=== PATIENT | male | born 1935 | race Caucasian/White ===

== ENCOUNTER 2016-08-02 08:17 | Emergency (ER) | payer MEDICARE, OTHER ==
--- NOTE | 2016-08-11 17:59 | ER ---
ADMIT: 08/02/2016 RM/LOC: ER [facility] MR#: [id number] [address] [id number] [place] [address] [place] [address] Emergency Room Report SEX: M AGE: 81 : 1935 DATE: 08/02/2016 See T-sheet for complete H and P. ADDENDUM: An 81-year-old male, who presented after he had been stung by couple bees. He does keep bees as a hobby and states that he was stung by at least twice about an hour and a half ago. He denies any shortness of breath or difficulty breathing or swallowing, but does have significant itching all over his body. On examination, he is in no distress. He has no stridor. No wheezes. He is handling his own secretions and airway is patent. He does have diffuse erythema on his body. He was given Decadron IM and Benadryl 50 mg IM, and he was watched for approximately an hour and his symptoms were significantly improved. He is discharged home with instructions to continue to use Benadryl and return to the ER for any difficulty breathing or swallowing. Gucci Guillory MD/ aixa JOB #: [id number] CC: Gucci Guillory MD, Attending Physician UNKNOWN, Family Physician
== END 2016-08-02 09:50 | disposition home or self-care (01) ==
LOC: ER 08:17
DX: T63.441A Toxic effect of venom of bees, accidental (unintentional), initial encounter (principal); R21 Rash and other nonspecific skin eruption; E11.9 Type 2 diabetes mellitus without complications; I10 Essential (primary) hypertension; K21.9 Gastro-esophageal reflux disease without esophagitis; E03.9 Hypothyroidism, unspecified